=== PATIENT | female | born 1930 | race Caucasian/White ===

== ENCOUNTER 2016-11-29 15:47 | Emergency (ER) | payer MEDICARE, BC ==
[2016-11-29] MEDS ORDERED: Sodium Chloride 0.9% 1,000 ML IV ONE (16:03)
--- NOTE | 2016-11-29 16:06 | EDM.PDOC ---
ED HPI GENERAL MEDICAL PROBLEM - General Chief Complaint: Cardiovascular Problem Stated Complaint: [facility] Time Seen by Provider: 11/29/16 16:01 Source of Information: Reports: Patient, Family (spouse) History Limitations: Reports: Altered Mental Status - History of Present Illness INITIAL COMMENTS - FREE TEXT/NARRATIVE: 85-year-old female comes to the ED with her elderly . The history suggests that she is extremely weak and keeps on falling. She was supposed to see Dr. Poole in the clinic today but her could not get her out of the house because she could not walk. Therefore the ambulance was called and she was brought to the ED. Paramedics identified a bradycardia in the 42 range. Associated hypotension with a BP of 85 systolic. Her reports that she's been eating very poorly as of late. Sure she's losing weight. She is confused a good portion of the time. He reports she falls quite a bit and he has to help her up. She has bruises all over her legs. He does not report that she's had her head recently. Apparently medications have not been changed for a lengthy period of time. She is on several medications for hypertension. Onset: Gradual (Condition has been gradually deteriorating for the last several weeks.) Duration: Week(s): Location: Reports: Generalized (Getting increasingly weak and difficult to walk. More confusional episodes. False quite easily. Is off balance.) Quality: Reports: Other (She denies any pain. Her has to contra dictated most of her answers she says her bowels are working fine but it turns out she is constipated etc.) Severity: Moderate (Frequent falls but quite severe weakness and decreased appetite.) Improves with: Reports: None Worsens with: Reports: Other (Activity and particularly standing.) Associated Symptoms: Reports: Confusion, Loss of Appetite, Malaise, Shortness of Breath, Weakness. Denies: Chest Pain, Cough, cough w sputum, Diaphoresis, Fever/Chills, Headaches, Nausea/Vomiting, Rash, Seizure, Syncope Treatments SQL ARCHITECT: Reports: Other (see below) (Generalized and cause of frequent falls her legs just give out on her. No medications.) - Related Data Allergies Allergy/AdvReac Type Severity Reaction Status Date / Time No Known Allergies Allergy Verified 11/29/16 17:46 Home Meds: Home Meds Atenolol 100 mg PO DAILY 11/29/16 [History] Enalapril/Hydrochlorothiazide [Enalapril-HCTZ 10-25 MG] 10 tab PO DAILY [History] Potassium Chloride [Klor-Con 10] 10 meq PO DAILY 11/29/16 [History] Spironolactone [Aldactone] 50 mg PO DAILY 11/29/16 [History] amLODIPine [Norvasc] 10 mg PO DAILY 11/29/16 [History] atorvaSTATin [Lipitor] 20 mg PO DAILY 11/29/16 [History] Past Medical History Cardiovascular History: Reports: Hypertension Social & Family History - Living Situation & Occupation Living situation: Reports: , with Spouse Occupation: Retired ED ROS GENERAL - Review of Systems Review Of Systems: Unable To Obtain (Unable to obtain with any degree of certainty. 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 She is very off balance apparently because of acoustic neuroma resection on the left side. 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 Denies: Wheezing, Pleuritic Chest Pain, Cough, Sputum, Hemoptysis Cardiovascular: Reports: Blood Pressure Problem (Is on 3 different medicines for blood pressure), Dyspnea on Exertion, Lightheadedness, Orthopnea. Denies: Chest Pain, Claudication ( and it is very low at this time.), Edema, Palpitations Endocrine: Reports: Fatigue GI/Abdominal: Reports: Constipation. Denies: Abdominal Pain : Reports: Frequency, Incontinence (Urge and stress component.) Musculoskeletal: Reports: Shoulder Pain (Bilaterally), Leg Pain, Joint Pain Skin: Reports: No Symptoms (Knees and hips sometimes) Neurological: Reports: Confusion, Dizziness, Difficulty Walking, Gait Disturbance. Denies: Trouble Speaking (Off balance and tends to fall quite easily.), Change in Speech Psychiatric: Reports: Confusion. Denies: Hallucinations, Homicidal Ideation, Mood Lability, Suicidal Ideation Hematologic/Lymphatic: Reports: No Symptoms Immunologic: Reports: No Symptoms ED EXAM, GENERAL - Physical Exam Exam: See Below Exam Limited By: Altered Mental Status (Appears confused to me. Most of the answers she gets yes or simple.) General Appearance: No Apparent Distress Eye Exam: Right Eye: PERRL (Only the right eye reacts to light.), Bilateral Eye : Vision Changes (Patient is blind in her left eye.) Throat/Mouth: Normal Inspection, Normal Lips, Normal Oropharynx, Other. No: Normal Teeth Head: Atraumatic, Normocephalic (Mouth is dry as is her tongue.) Neck: Normal Inspection, Limited Range of Motion. No: Full Range of Motion, Lymphadenopathy (L), Lymphadenopathy (R) Respiratory/Chest: Respiratory Distress (Mild tachypnea at rest. O2 sats 98% on room air.), Decreased Breath Sounds (Increased breath sounds in the lower 25% of lung patrick with a few scattered rales appreciated morning the left than on the right.) Cardiovascular: No Gallop, No Murmur, No Rub, Bradycardia (Heart rate is 42-44/ m sinus bradycardia on the monitor.). No: Normal Peripheral Pulses Peripheral Pulses: 1+: Posterior Tibial (L), Posterior Tibial (R), Dorsalis Pedis (L), Dorsalis Pedis (R) GI/Abdominal: Normal Bowel Sounds, Soft, Non-Tender, Distended (Mildly tympanitic to percussion in the epigastrium compatible with some aerophagia.) Back Exam: Normal Inspection, Full Range of Motion. No: CVA Tenderness (L), CVA Tenderness (R) Extremities: Joint Swelling (Evidence of osteophytic changes in both knees.). No: Normal Range of Motion, Non-Tender Neurological: No: Alert, Oriented, CN II-XII Intact, Normal Cognition, Normal Gait Psychiatric: Flat Affect Skin Exam: Warm, Dry, Intact, Normal Color, No Rash EKG INTERPRETATION EKG Date: 11/29/16 Time: 15:50 Rhythm: Other (Sinus bradycardia at 44/m) Rate (Beats/Min): 44 Tendoy: LAD-Left Tendoy Deviation (Left axis deviation of -23) P-Wave: Present (First-degree AV block) QRS: Other (Left bundle branch block near Q-wave V1 and V2 consider old anteroseptal myocardial infarction) ST-T: Other (Wandering baseline but no definitive ischemia. T-wave inversion in aVL which is nonspecific) QT: Prolonged (2 inch T interval Harpal moderately to markedly prolonged) EKG Interpretation Comments: Abnormal ECG Course - Vital Signs Last Recorded V/S: Last Vital Signs Temp 36.3 C 11/29/16 15:57 Pulse 52 L 11/29/16 17:28 Resp 13 11/29/16 17:28 BP 111/52 L 11/29/16 17:28 Pulse Ox 100 11/29/16 18:19 - Orders/Labs/Meds Orders: Active Orders 24 hr Category Date Time Status EKG 12 Lead [EKG Documentation Completion] [RC] STAT Care 11/29/16 15:59 Active EKG Documentation Completion [RC] STAT Care 11/29/16 16:01 Inactive RT Aerosol Therapy [RC] ASDIRECTED Care 11/29/16 18:19 Active Chest 1V Frontal [CR] Stat Exams 11/29/16 16:01 Taken Head wo Cont [CT] Stat Exams 11/29/16 16:06 Taken CALCIUM, IONIZED [REF] Stat Lab 11/29/16 16:15 Received URINALYSIS W/MICROSCOPIC [UA W/MICROSCOPIC] [URIN] Stat Lab 11/29/16 16:02 Uncollected Insulin Regular, Human [HumuLIN R] Med 11/29/16 18:30 Active 10 unit IVPUSH BIDAC Norepinephrine [Levophed] 4 mg Med 11/29/16 17:00 Active Dextrose 5% in Water 246 ml IV TITRATE Sodium Bicarbonate [Sodium Bicarbonate 8.4%] Med 11/29/16 18:39 Once 50 meq IVPUSH ONETIME ONE Sodium Bicarbonate [Sodium Bicarbonate 8.4%] 50 meq Med 11/29/16 18:45 Ordered Dextrose 5%-0.9% NaCl [Dextrose 5%-Normal Saline] 1,000 ml IV ASDIRECTED Medication Orders Norepinephrine Bitartrate 4 mg (/ Dextrose/Water) 250 mls @ 15 mls/hr IV TITRATE ALONSO; 4 MCG/MIN PRN Reason: Protocol Last Admin: 11/29/16 17:19 Dose: 4 mcg/min, 15 mls/hr Insulin Human Regular (Humulin R) 10 unit IVPUSH BIDAC ALONSO PRN Reason: Protocol Last Admin: 11/29/16 18:34 Dose: 10 units Labs: Laboratory Tests 11/29/16 11/29/16 11/29/16 Range/Units 16:15 16:15 16:15 WBC 12.59 H (3.98-10.04) K/mm3 RBC 5.05 (3.98-5.22) M/mm3 Hgb 15.0 (11.2-15.7) gm/L Hct 45.8 H (34.1-44.9) % MCV 90.7 (79.4-94.8) fl MCH 29.7 (25.6-32.2) pg MCHC 32.8 (32.2-35.5) g/dl RDW Std Deviation 50.5 H (36.4-46.3) fL Plt Count 354 (182-369) K/mm3 MPV 10.4 (9.4-12.3) fl Neutrophils % (Manual) 80 H (40-60) % Band Neutrophils % 0 (0-10) % Lymphocytes % (Manual) 16 L (20-40) % Atypical Lymphs % 3 % Monocytes % (Manual) 1 L (2-10) % Eosinophils % (Manual) 0 L (0.7-5.8) % Basophils % (Manual) 0 L (0.1-1.2) Platelet Estimate Adequate Plt Morphology Comment Normal Polychromasia 1+ slight Poikilocytosis 1+ slight Anisocytosis 1+ slight Microcytosis 1+ slight Macrocytosis 1+ slight Tear Drop Cells 1+ slight RBC Morph Comment Abnormal ESR (0-20) mm/hr PT 10.7 (8.0-13.0) SECONDS INR 0.98 Sodium 136 (136-145) mEq/L Potassium (3.5-5.1) mEq/L Chloride 108 H (98-107) mEq/L Carbon Dioxide 10 L (21-32) mEq/L Anion Gap 26.6 H (5-15) BUN 122 H (7-18) mg/dL Creatinine 8.9 H (0.55-1.02) mg/dL Est Cr Clr Drug Dosing 3.75 mL/min Estimated GFR (MDRD) 4 (>60) mL/min BUN/Creatinine Ratio 13.7 L (14-18) Glucose 123 H (83-115) mg/dL Calcium 11.4 H (8.5-10.1) mg/dL Total Bilirubin 0.5 (0.2-1.0) mg/dL AST 23 (15-37) U/L ALT 23 (14-59) U/L Alkaline Phosphatase 95 (46-116) U/L CK-MB (CK-2) 6.1 H (0-3.6) ng/ml Troponin I 0.019 (0.00-0.056) ng/mL C-Reactive Protein < 0.2 (<1.0) mg/dL NT-Pro-B Natriuret Pep 2665 H (0-450) pg/mL Total Protein 8.9 H (6.4-8.2) g/dl Albumin 4.2 (3.4-5.0) g/dl Globulin 4.7 gm/dL Albumin/Globulin Ratio 0.9 L (1-2) 11/29/16 Range/Units 16:15 WBC (3.98-10.04) K/mm3 RBC (3.98-5.22) M/mm3 Hgb (11.2-15.7) gm/L Hct (34.1-44.9) % MCV (79.4-94.8) fl MCH (25.6-32.2) pg MCHC (32.2-35.5) g/dl RDW Std Deviation (36.4-46.3) fL Plt Count (182-369) K/mm3 MPV (9.4-12.3) fl Neutrophils % (Manual) (40-60) % Band Neutrophils % (0-10) % Lymphocytes % (Manual) (20-40) % Atypical Lymphs % % Monocytes % (Manual) (2-10) % Eosinophils % (Manual) (0.7-5.8) % Basophils % (Manual) (0.1-1.2) Platelet Estimate Plt Morphology Comment Polychromasia Poikilocytosis Anisocytosis Microcytosis Macrocytosis Tear Drop Cells RBC Morph Comment ESR 42 H (0-20) mm/hr PT (8.0-13.0) SECONDS INR Sodium (136-145) mEq/L Potassium (3.5-5.1) mEq/L Chloride (98-107) mEq/L Carbon Dioxide (21-32) mEq/L Anion Gap (5-15) BUN (7-18) mg/dL Creatinine (0.55-1.02) mg/dL Est Cr Clr Drug Dosing mL/min Estimated GFR (MDRD) (>60) mL/min BUN/Creatinine Ratio (14-18) Glucose (83-115) mg/dL Calcium (8.5-10.1) mg/dL Total Bilirubin (0.2-1.0) mg/dL AST (15-37) U/L ALT (14-59) U/L Alkaline Phosphatase (46-116) U/L CK-MB (CK-2) (0-3.6) ng/ml Troponin I (0.00-0.056) ng/mL C-Reactive Protein (<1.0) mg/dL NT-Pro-B Natriuret Pep (0-450) pg/mL Total Protein (6.4-8.2) g/dl Albumin (3.4-5.0) g/dl Globulin gm/dL Albumin/Globulin Ratio (1-2) Meds: Medications Generic Name Dose Route Start Last Admin Trade Name Freq PRN Reason Stop Dose Admin Norepinephrine Bitartrate 4 mg 250 mls @ 15 mls/hr 11/29/16 17:00 11/29/16 17 :19 / Dextrose/Water IV 4 mcg/min TITRATE ALONSO 15 mls/hr Protocol Administration 4 MCG/MIN Insulin Human Regular 10 unit 11/29/16 18:30 11/29/16 18:34 Humulin R IVPUSH 10 units BIDAC ALONSO Administration Protocol Discontinued Medications Generic Name Dose Route Start Last Admin Trade Name Freq PRN Reason Stop Dose Admin Albuterol 7.5 mg 11/29/16 18:18 11/29/16 18:25 Proventil Neb Soln NEB 11/29/16 18:19 7.5 mg ONETIME ONE Administration Calcium Gluconate 1 gm 11/29/16 18:17 11/29/16 18:31 Calcium Gluconate IVPUSH 11/29/16 18:18 1 gm ONETIME ONE Administration Dextrose/Water 50 ml 11/29/16 18:15 11/29/16 18:36 Dextrose 50% In Water IVPUSH 11/29/16 18:16 50 ml ONETIME ONE Administration Furosemide 40 mg 11/29/16 18:18 11/29/16 18:36 Lasix IVPUSH 11/29/16 18:19 40 mg NOW ONE Administration Glucagon 1 mg 11/29/16 16:08 11/29/16 16:19 Glucagen IVPUSH 11/29/16 16:09 1 mg ONETIME ONE Administration Sodium Chloride 1,000 mls @ 500 mls/hr 11/29/16 16:03 11/29/16 16:16 Normal Saline IV 11/29/16 18:02 500 mls/hr ONETIME ONE Administration Sodium Polystyrene Sulfonate 45 gm 11/29/16 18:19 Kayexalate PO 11/29/16 18:20 NOW ONE - Radiology Interpretation Free Text/Narrative:: 85-year-old female presents to the ED with generalized weakness and frequent falls. Seems to be a combination of orthostatic hypotension and associated sinus bradycardia in the 40s. BP has fallen to 88/71. She has not compos mentis. Her has to answer most of her questions she is confused and answers yes to most questions asked of her. Question whether or not she may be beta debora toxicity. Going to give her glucagon 1 mg IV and see if it makes any difference failing this she may well need a vasopressor temporarily. She'll be given a bolus of 500 mils of normal saline as well. For some reason her heart appears to be sick likely from a metabolic etiology. Medications being on spironolactone potassium supplement and a SHAHEEN inhibitor she could well have significant hyperkalemia. Her bradycardia however seems to be producing hypotension since she is already on 3 antihypertensive medications suggest that she is chronically hypertensive. She does not appear to be overtly volume depleted. Plan chest x-ray ECG CT head and of course routine labs. These will include cardiac markers and BNP. - Re-Assessments/Exams Free Text/Narrative Re-Assessment/Exam: 11/29/16 16:29 ECG revealed sinus bradycardia at 44/m. There is a first-degree AV block there is a less than left axis deviation of -23. There is a borderline left bundle branch block pattern QT is also markedly prolonged. This suggests a metabolic problem with her heart. Chest x-ray reveals no cardiomegaly crit silhouette is well within normal limits. 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 11/29/16 16:50 CT of the brain reveals age-appropriate degenerative changes with moderate small vessel ischemic changes in both basal ganglia. There is evidence of an supple malacia at the anterior horns of the lateral ventricles bilaterally. 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 Age is indeterminate. No CTs were available for comparison purposes. Heart rate remains sinus bradycardia at 45/m. O2 sats are 98%. BP is 83 on 68. I'm therefore going to start her Levothroid drip at 4 mcg/m. 11/29/16 18:10: For whatever reason it took 2 hours to get the chemistry back from the lab. They reveal numerous critical values. Total white count is 12.59 with 80% neutrophils and no bands. Hemoglobin is 15.0 hematocrit is 45.8 platelets are 354,000. Coags show a PT of 10.7 INR 0.98. Sedimentation rate was 42. Sodium is 136 potassium is 8.9 and was double checked. Bicarbonate is 10. Chloride 108. And a gap is markedly elevated at 26.6. BUNs and is 122. Creatinine is 8.9. EGFR is only 4. Calcium 111.4 glucose 123 CK-MB fraction 6.1 troponin is 0.019. BNP elevated as 2665. These results resulted in a cascade of treatment. She received a amp of calcium gluconate IV. This is in spite of her calcium already being elevated and her blood. She was given 7.5 mg of albuterol via nebulizer treatment. She was given Kayexalate 45 mg by mouth. She was given 10 units of regular insulin with an amp of D50 percent. She was given 1 amp of sodium bicarbonate. It is likely a combination of medications causing her acute renal failure. Aldactone mixed with potassium supplement mixed with SHAHEEN inhibitor and diuretic. Her CODE STATUS is full code for the only lifesaving measure at this time will be dialysis. I will therefore make arrangements for her to go to [facility] in [place] for acute definitive dialysis management. 11/29/16 18:44 spoke with the help desk administrator at [facility] and he is accepted care. He suggest taking 8 a liter of D5 normal saline with an amp of bicarbonate in it to run at 150 mils per hour. Levophed has been increased to 8 mg/m. Heart rate remains low at 38-40/m. BP currently is 91 /52. She'll be flown by helicopter service to [facility] in [place]. 11/29/16 19:02 heart rate is up to 58/m and BP is 91/52 time of discharge. Sats are 100% Departure - Departure Time of Disposition: 19:03 Disposition: DC/Tfer to [facility] 02 Reason for Transfer *Q: Other Condition: Critical Clinical Impression: Hyperkalemia, diminished renal excretion, Metabolic acidosis, Hypercalcemia Acute renal failure Qualifiers: Acute renal failure type: unspecified Qualified Code(s): N17.9 - Acute kidney failure, unspecified Referrals: Popeye Poole MD [Primary Care Provider] - Forms: ED Department Discharge Critical Care Note - Critical Care Note Total Time (mins): 100 - My Orders Last 24 Hours: My Active Orders 11/29/16 15:59 EKG 12 Lead [EKG Documentation Completion] [RC] STAT 11/29/16 16:01 EKG Documentation Completion [RC] STAT Chest 1V Frontal [CR] Stat 11/29/16 16:02 URINALYSIS W/MICROSCOPIC [UA W/MICROSCOPIC] [URIN] Stat 11/29/16 16:06 Head wo Cont [CT] Stat 11/29/16 16:15 CALCIUM, IONIZED [REF] Stat 11/29/16 17:00 Norepinephrine [Levophed] 4 mg Dextrose 5% in Water 246 ml IV TITRATE 11/29/16 18:19 RT Aerosol Therapy [RC] ASDIRECTED 11/29/16 18:30 Insulin Regular, Human [HumuLIN R] 10 unit IVPUSH BIDAC 11/29/16 18:39 Sodium Bicarbonate [Sodium Bicarbonate 8.4%] 50 meq IVPUSH ONETIME ONE 11/29/16 18:45 Sodium Bicarbonate [Sodium Bicarbonate 8.4%] 50 meq Dextrose 5%-0.9% NaCl [ Dextrose 5%-Normal Saline] 1,000 ml IV ASDIRECTED - Assessment/Plan Last 24 Hours: My Active Orders 11/29/16 15:59 EKG 12 Lead [EKG Documentation Completion] [RC] STAT 11/29/16 16:01 EKG Documentation Completion [RC] STAT Chest 1V Frontal [CR] Stat 11/29/16 16:02 URINALYSIS W/MICROSCOPIC [UA W/MICROSCOPIC] [URIN] Stat 11/29/16 16:06 Head wo Cont [CT] Stat 11/29/16 16:15 CALCIUM, IONIZED [REF] Stat 11/29/16 17:00 Norepinephrine [Levophed] 4 mg Dextrose 5% in Water 246 ml IV TITRATE 11/29/16 18:19 RT Aerosol Therapy [RC] ASDIRECTED 11/29/16 18:30 Insulin Regular, Human [HumuLIN R] 10 unit IVPUSH BIDAC 11/29/16 18:39 Sodium Bicarbonate [Sodium Bicarbonate 8.4%] 50 meq IVPUSH ONETIME ONE 11/29/16 18:45 Sodium Bicarbonate [Sodium Bicarbonate 8.4%] 50 meq Dextrose 5%-0.9% NaCl [ Dextrose 5%-Normal Saline] 1,000 ml IV ASDIRECTED
[2016-11-29] MEDS ORDERED: Glucagon,Human Recombinant 1 MG Vial IVPUSH ONE (16:08)
[2016-11-29] MEDS ORDERED: Norepinephrine 4 MG in Dextrose 5% in Water 246 ML IV SCH ×2 (17:00)
[2016-11-29] MEDS ORDERED: 50% Dextrose in Water 50 ML Syringe IVPUSH ONE (18:15)
[2016-11-29] MEDS ORDERED: Calcium Gluconate 10% 1 GM/10 ML SDV IVPUSH ONE (18:17)
[2016-11-29] MEDS ORDERED: Albuterol 0.083% 2.5 MG/3 ML Neb Soln NEB ONE (18:18)
[2016-11-29] MEDS ORDERED: Furosemide 40 MG/4 ML VIAL IVPUSH ONE (18:18)
[2016-11-29] MEDS ORDERED: Sodium Polystyrene Sulfonate 15 GM/60 ML Susp 60 ML Bot PO ONE (18:19)
[2016-11-29] MEDS ORDERED: Insulin Regular, Human 100 Units/ML 3 ML Vial IVPUSH SCH (18:30)
[2016-11-29] MEDS ORDERED: Sodium Bicarbonate 8.4% 50 MEQ/50 ML Syringe IVPUSH ONE (18:39)
[2016-11-29] MEDS ORDERED: Dextrose 5%-0.9% NaCl 1,000 ML ONE (18:44)
[2016-11-29] MEDS ORDERED: Sodium Bicarbonate 8.4% 50 MEQ/50 ML Syringe ONE (18:44)
[2016-11-29] MEDS ORDERED: DEXTROSE IV SCH (18:45)
[2016-11-29] MEDS ORDERED: SODIUM BICARBONATE IV SCH (18:45)
[2016-11-29] MEDS ORDERED: NACL IV SCH (18:45)
[2016-11-29 19:45] VITALS: BP 93/50
--- NOTE | 2016-11-30 10:33 | CR ---
Chest: Frontal view of the chest was obtained. Comparison: No prior chest x-ray. Heart size and mediastinum are within normal limits. Lungs are clear. Left shoulder prosthesis is seen. Slight scoliosis and degenerative change is seen within the spine. Surgical clips are noted within the upper right abdomen. Impression: 1. Incidental findings. Nothing acute is appreciated on frontal chest x-ray. Diagnostic code #2
--- NOTE | 2016-11-30 10:33 | CT ---
Head CT Technique: Multiple axial sections through the brain were obtained. Intravenous contrast was not utilized. Comparison: No prior head CT exam. Findings: Previous craniotomy is noted within the left occipital region. Encephalomalacia is noted within a large portion of the left cerebellar hemisphere. Ventricles along with basal cisterns and sulci over the convexities are mildly prominent. Diminished density is noted within the periventricular and subcortical white matter which is compatible with small vessel ischemic demyelination change. No evidence of intracranial hemorrhage. No midline shift or mass effect is identified. Bone window settings show no acute calvarial abnormality. Impression: 1. Previous left occipital craniotomy with adjacent encephalomalacia involving a large portion of the left cerebellar hemisphere. 2. Senescent change as noted above. 3. Nothing acute is identified on noncontrast head CT exam. Diagnostic code #3 Agree with preliminary report issued by [facility] ([facility] preliminary report dictated on 11/29/16, 6:05 PM Central Time)
== END 2016-11-29 19:34 ==
LOC: SUPCPDRO 15:47 → JD.ED 15:47
DX: N17.9 Acute kidney failure, unspecified (principal); E87.5 Hyperkalemia; E87.2 Acidosis; E83.52 Hypercalcemia; I10 Essential (primary) hypertension; Z79.899 Other long term (current) drug therapy; R06.02 Shortness of breath; R41.0 Disorientation, unspecified
CPT/HCPCS: 36415; 51702; 70450; 71010; 80053; 81001; 82330; 82553; 82962; 83880; 84484; 85025; 85610; 85652; 86140; 93005; 94640; 96361; 96365; 96366; 96375; 96376; 99285; A9270; J0610; J1610; J1817; J1940; J7040; J7042; J7060; P9612; 93010